=== PATIENT | male | born 1985 | race African-American/Black ===

== ENCOUNTER 2016-10-02 12:01 | Inpatient (IN) | payer OTHER ==
[2016-10-02 12:21] VITALS: BMI 26.9
--- NOTE | 2016-10-02 14:49 | HP ---
CIWA Score - CIWA Score Nausea/Vomitin-Mild Nausea/No Vomiting Muscle Tremors: 4-Moderate,w/Arms Extend Anxiety: 4-Mod. Anxious/Guarded Agitation: 4-Moderately Restless Paroxysmal Sweats: 3 Orientation: 0-Oriented Tacttile Disturbances: 0-None Auditory Disturbances: 0-None Visual Disturbances: 0-None Headache: 2-Mild CIWA-Ar Total Score: 18 Admission ROS BHS - HPI Chief Complaint: Withdrawal sx. Allergies/Adverse Reactions: Allergies Allergy/AdvReac Type Severity Reaction Status Date / Time No Known Drug Allergies Allergy Verified 10/02/16 13:48 History of Present Illness: 31 y/o man with a long hx. of alcoholism is admitted for detox. Pt. last detox was 10 yrs. ago. denies significant sobriety. Exam Limitations: No Limitations - Ebola screening Have you traveled outside of the country in the last 21 days: No Have you had contact with anyone from an Ebola affected area: No Have you been sick,other than usual withdrawal symptoms: No Do you have a fever: No - Review of Systems Constitutional: Diaphoresis EENT: reports: No Symptoms Reported Respiratory: reports: No Symptoms reported Cardiac: reports: No Symptoms Reported GI: reports: Nausea, Abdominal cramping : reports: No Symptoms Reported Musculoskeletal: reports: No Symptoms Reported Integumentary: reports: Sweating Neuro: reports: Tremors Endocrine: reports: No Symptoms Reported Hematology: reports: No Symptoms Reported Psychiatric: reports: No Sypmtoms Reported Other Systems: Reviewed and Negative Patient History - Patient Medical History Hx Anemia: No Hx Asthma: No Hx Chronic Obstructive Pulmonary Disease (COPD): No Hx Cancer: No Hx Cardiac Disorders: No Hx Congestive Heart Failure: No Hx Hypertension: No Hx Hypercholesterolemia: No Hx Pacemaker: No HX Cerebrovascular Accident: No Hx Seizures: No Hx Dementia: No Hx Diabetes: No Hx Gastrointestinal Disorders: No Hx Liver Disease: No Hx Genitourinary Disorders: No Hx Sexually Transmitted Disorders: No Hx Renal Disease (ESRD): No Hx Thyroid Disease: No Hx Human Immunodeficiency Virus (HIV): No Hx Hepatitis C: No Hx Depression: No Hx Suicide Attempt: No Hx Bipolar Disorder: No Hx Schizophrenia: No - Patient Surgical History Past Surgical History: No Hx Neurologic Surgery: No Hx Cataract Extraction: No Hx Cardiac Surgery: No Hx Lung Surgery: No Hx Breast Surgery: No Hx Breast Biopsy: No Hx Abdominal Surgery: No Hx Appendectomy: No Hx Cholecystectomy: No Hx Genitourinary Surgery: No Hx Section: No Hx Orthopedic Surgery: No Anesthesia Reaction: No - PPD History Previous Implant?: Yes Documented Results: Negative w/o proof Implanted On Prior [facility] Admission?: No PPD to be Administered?: Yes - Smoking Cessation Smoking history: Current every day smoker Have you smoked in the past 12 months: Yes Aproximately how many cigarettes per day: 10 Hx Chewing Tobacco Use: No Initiated information on smoking cessation: Yes 'Breaking Loose' booklet given: 10/02/16 - Substance & Tx. History Hx Alcohol Use: Yes Hx Substance Use: Yes Substance Use Type: Alcohol, Marijuana Hx Substance Use Treatment: Yes (detox 10 yrs. ago) - Substances Abused Alcohol Route: Oral Frequency: Daily Amount used: liquor- 10fifths (vodka) Age of first use: 14 Date of Last Use: 10/01/16 Marijuana/Hashish Route: Smoking Frequency: 1-3 times last 30 days Amount used: $60 Age of first use: 14 Date of Last Use: 10/02/16 Family Disease History - Family Disease History Family Disease History: Heart Disease: Father (htn,alcohol,cocaine), Mother (htn ,alcohol,cocaine), Other: Father, Mother Admission Physical Exam [facility] - Vital Signs Vital Signs: Vital Signs - 24 hr 10/02/16 12:17 Temperature 96.6 F L Pulse Rate 78 Respiratory 18 Rate Blood Pressure 143/83 - Physical General Appearance: Yes: Tremorous, Sweating, Anxious HEENTM: Yes: Within Normal Limits Respiratory: Yes: Chest Non-Tender, Lungs Clear, Normal Breath Sounds Neck: Yes: Supple Breast: Yes: Breast Exam Deferred Cardiology: Yes: Regular Rhythm, Regular Rate, S1, S2 Abdominal: Yes: Normal Bowel Sounds, Non Tender, Soft Genitourinary: Yes: Within Normal Limits Back: Yes: Within Normal Limits Musculoskeletal: Yes: Within Normal Limits Extremities: Yes: Tremors Neurological: Yes: Fully Oriented, Alert Integumentary: Yes: Diaphoresis Lymphatic: Yes: Within Normal Limits - Diagnostic (1) Alcohol dependence with uncomplicated withdrawal Current Visit: Yes Status: Acute (2) Cannabis dependence, uncomplicated Current Visit: Yes Status: Acute Cleared for Admission [facility] - Detox or Rehab [facility] Level of Care: Medically Managed Detox Regimen/Protocol: Librium BHS Breath Alcohol Content Breath Alcohol Content: 0 Urine Drug Screen - Results Drug Screen Negative: Yes
[2016-10-02] MEDS ORDERED: P-EPHED 60MG/TRIPROLIDI 2.5MG TABLET PO PRN (14:57)
[2016-10-02] MEDS ORDERED: MAG HYDROX/AL HYDROX/SIMETH 30 ML UNIT-DOSE CUP PO PRN (14:57)
[2016-10-02] MEDS ORDERED: ACETAMINOPHEN 325 MG TABLET (FP) PO PRN (14:57)
[2016-10-02] MEDS ORDERED: MENTHOL/PHENOL 1 EACH UD MM PRN (14:57)
[2016-10-02] MEDS ORDERED: IBUPROFEN 400 MG TABLET (FP) PO PRN (14:57)
[2016-10-02] MEDS ORDERED: guaiFENesin/D-METHORPHAN HB 10 ML UNIT-DOSE CUPS PO PRN (14:57)
[2016-10-02] MEDS ORDERED: MAGNESIUM HYDROX 2400MG/30ML ORAL SUSPENSION 30 ML CUP PO PRN (14:57)
[2016-10-02] MEDS ORDERED: hydrOXYzine PAMOATE 50 MG CAPSULE (FP) PO PRN (14:57)
[2016-10-02] MEDS ORDERED: MAGNESIUM CITRATE 300 ML BOTTLE PO PRN (14:57)
[2016-10-02] MEDS ORDERED: LOPERAMIDE HCL 2 MG CAPSULE PO PRN (14:57)
[2016-10-02] MEDS ORDERED: chlordiazePOXIDE HCL 25 MG CAPSULE PO PRN (14:57)
[2016-10-02] MEDS ORDERED: chlordiazePOXIDE HCL 25 MG CAPSULE PO ONE (14:57)
[2016-10-02] MEDS ORDERED: diazePAM 5 MG TABLET PO ONE (16:26)
[2016-10-02] MEDS: NICOTINE 14 MG/24 HOURS TOPICAL PATCH TD SCH (16:51)
[2016-10-02] MEDS ORDERED: chlordiazePOXIDE HCL 25 MG CAPSULE PO SCH (17:00)
[2016-10-02 20:55] LABS: URINE APPEARANCE CLEAR; URINE BILIRUBIN NEGATIVE (NEGATIVE); URINE BLOOD NEGATIVE (NEGATIVE); URINE COLOR STRAW; URINE GLUCOSE (UA) NEGATIVE (NEGATIVE); URINE KETONE NEGATIVE (NEGATIVE); URINE LEUK ESTERASE NEGATIVE (NEGATIVE); URINE NITRITE NEGATIVE (NEGATIVE); URINE PROTEIN NEGATIVE (NEGATIVE); URINE UROBILINOGEN NEGATIVE E.U./dl (0.2-1.0)
[2016-10-02] MEDS: THIAMINE HCL 100 MG TABLET (FP) PO SCH (22:30)
[2016-10-02] MEDS: diazePAM 5 MG TABLET PO SCH (22:30)
[2016-10-03] MEDS: diazePAM 5 MG TABLET PO SCH ×3 (07:20→22:38)
[2016-10-03 10:28] LABS: MCH 32.8 pg (25.7-33.7); MCHC 33.4 g/dl (32.0-35.9); MEAN CELL VOLUME 98.1 fl (80-96); PLATELET COUNT 198 K/MM3 (134-434); RDW 12.6 % (11.9-15.9); WHITE BLOOD COUNT 2.7 K/mm3 (4.0-10.0)
[2016-10-03] MEDS: diazePAM 5 MG TABLET PO PRN ×2 (10:34→17:20)
[2016-10-03] MEDS: PRENATAL VITAMINS W/ FOLIC ACID TABLET (FP) PO SCH (10:34)
[2016-10-03] MEDS: NICOTINE 14 MG/24 HOURS TOPICAL PATCH TD SCH (10:36)
[2016-10-03] MEDS: NICOTINE POLACRILEX 2 MG GUM BC PRN ×2 (10:37→20:49)
[2016-10-03 10:39] LABS: ALBUMIN 3.8 g/dl (3.4-5.0); ALK PHOS 71 U/L (45-117); ANION GAP 10 (8-16); BILIRUBIN,TOTAL 0.7 mg/dL (0.2-1.0); CALCIUM 9.2 mg/dL (8.5-10.1); CO2 26 mmol/L (21-32); CREATININE 0.9 mg/dL (0.7-1.3); GLUCOSE,RANDOM 75 mg/dL (74-106); SGOT/AST 18 U/L (15-37); SGPT/ALT 23 U/L (12-78); TOT PROT 6.5 g/dl (6.4-8.2)
--- NOTE | 2016-10-03 10:50 | PN ---
[facility] CIWA - CIWA Score Nausea/Vomitin Muscle Tremors: 3 Anxiety: 3 Agitation: 2 Paroxysmal Sweats: 1-Minimal Palms Moist Orientation: 0-Oriented Tacttile Disturbances: 1-Very Mild Itch/Numbness Auditory Disturbances: 1-Very Mild Visual Disturbances: 1-Very Mild Sensitivity Headache: 2-Mild CIWA-Ar Total Score: 17 BHS Progress Note (SOAP) Subjective: alert,irritable,anxious,interrupted sleep,tremor Objective: 10/03/16 10:47 Vital Signs Temperature 97.6 F 10/02/16 18:12 Pulse Rate 77 10/02/16 18:12 Respiratory Rate 18 10/03/16 03:30 Blood Pressure 121/76 10/02/16 18:12 O2 Sat by Pulse Oximetry (%) 10/03/16 10:48 ekg nsr.normal ecg Laboratory Last Values WBC 2.7 K/mm3 (4.0-10.0) L 10/03/16 07:00 RBC 4.38 M/mm3 (4.00-5.60) 10/03/16 07:00 Hgb 14.4 GM/dL (11.7-16.9) 10/03/16 07:00 Hct 43.0 % (35.4-49) 10/03/16 07:00 MCV 98.1 fl (80-96) H 10/03/16 07:00 MCHC 33.4 g/dl (32.0-35.9) 10/03/16 07:00 RDW 12.6 % (11.9-15.9) 10/03/16 07:00 Plt Count 198 K/MM3 (134-434) 10/03/16 07:00 MPV 9.0 fl (7.5-11.1) 10/03/16 07:00 Sodium 140 mmol/L (136-145) 10/03/16 07:00 Potassium 4.2 mmol/L (3.5-5.1) 10/03/16 07:00 Chloride 104 mmol/L (98-107) 10/03/16 07:00 Carbon Dioxide 26 mmol/L (21-32) 10/03/16 07:00 Anion Gap 10 (8-16) 10/03/16 07:00 BUN 11 mg/dL (7-18) 10/03/16 07:00 Creatinine 0.9 mg/dL (0.7-1.3) 10/03/16 07:00 Creat Clearance w eGFR > 60 (>60) 10/03/16 07:00 Random Glucose 75 mg/dL (74-106) 10/03/16 07:00 Calcium 9.2 mg/dL (8.5-10.1) 10/03/16 07:00 Total Bilirubin 0.7 mg/dL (0.2-1.0) 10/03/16 07:00 AST 18 U/L (15-37) 10/03/16 07:00 ALT 23 U/L (12-78) 10/03/16 07:00 Alkaline Phosphatase 71 U/L (45-117) 10/03/16 07:00 Total Protein 6.5 g/dl (6.4-8.2) 10/03/16 07:00 Albumin 3.8 g/dl (3.4-5.0) 10/03/16 07:00 Urine Color Straw 10/02/16 20:30 Urine Appearance Clear 10/02/16 20:30 Urine pH 8.0 (5.0-8.0) 10/02/16 20:30 Ur Specific [place] 1.010 (1.001-1.035) 10/02/16 20:30 Urine Protein Negative (NEGATIVE) 10/02/16 20:30 Urine Glucose (UA) Negative (NEGATIVE) 10/02/16 20:30 Urine Ketones Negative (NEGATIVE) 10/02/16 20:30 Urine Blood Negative (NEGATIVE) 10/02/16 20:30 Urine Nitrite Negative (NEGATIVE) 10/02/16 20:30 Urine Bilirubin Negative (NEGATIVE) 10/02/16 20:30 Urine Urobilinogen Negative E.U./dl (0.2-1.0) 10/02/16 20:30 Ur Leukocyte Esterase Negative (NEGATIVE) 10/02/16 20:30 labs pending 10/03/16 10:49 10/03/16 10:49 Assessment: 10/03/16 10:49 withdrawal symptom Plan: continue detox,leukopenia wbc 2,700,repeat cbc in am
--- NOTE | 2016-10-03 15:00 | EKG ---
Test Reason : Blood Pressure : / mmHG Vent. Rate : 070 BPM Atrial Rate : 070 BPM P-R Int : 154 ms QRS Dur : 094 ms QT Int : 412 ms P-R-T Axes : 061 066 063 degrees QTc Int : 444 ms NORMAL SINUS RHYTHM NORMAL ECG WHEN COMPARED WITH ECG OF 02-OCT-2016 14:51, NO SIGNIFICANT CHANGE WAS FOUND Confirmed by ALEXA SOLIS MD ([id number]) on 10/03/2016 3:00:18 PM Referred By: Confirmed By:ALEXA SOLIS MD
--- NOTE | 2016-10-03 15:01 | EKG ---
Test Reason : Blood Pressure : / mmHG Vent. Rate : 076 BPM Atrial Rate : 227 BPM P-R Int : 000 ms QRS Dur : 100 ms QT Int : 370 ms P-R-T Axes : 066 063 052 degrees QTc Int : 416 ms ATRIAL FLUTTER WITH 3:1 A-V CONDUCTION RSR' OR QR PATTERN IN V1 SUGGESTS RIGHT VENTRICULAR CONDUCTION DELAY VOLTAGE CRITERIA FOR LEFT VENTRICULAR HYPERTROPHY ABNORMAL ECG NO PREVIOUS ECGS AVAILABLE Confirmed by WILL LIN, ALEXA ([id number]) on 10/03/2016 3:01:06 PM Referred By: Confirmed By:ALEXA SOLIS MD
[2016-10-03] MEDS ORDERED: chlordiazePOXIDE HCL 25 MG CAPSULE PO SCH (17:00)
[2016-10-03] MEDS: THIAMINE HCL 100 MG TABLET (FP) PO SCH (22:38)
[2016-10-03] MEDS: diphenhydrAMINE HCL 50 MG CAPSULE PO PRN (22:38)
--- NOTE | 2016-10-04 09:03 | PN ---
[facility] CIWA - CIWA Score Nausea/Vomitin Muscle Tremors: 3 Anxiety: 3 Agitation: 2 Paroxysmal Sweats: 1-Minimal Palms Moist Orientation: 0-Oriented Tacttile Disturbances: 1-Very Mild Itch/Numbness Auditory Disturbances: 1-Very Mild Visual Disturbances: 1-Very Mild Sensitivity Headache: 2-Mild CIWA-Ar Total Score: 17 BHS Progress Note (SOAP) Subjective: ALERT,IRRITABLE,ANXIOUS,TREMOR,INTERRUPTED SLEEP Objective: 10/04/16 09:01 Vital Signs Temperature 97 F L 10/03/16 22:04 Pulse Rate 89 10/03/16 22:04 Respiratory Rate 18 10/04/16 06:30 Blood Pressure 124/98 10/03/16 22:04 O2 Sat by Pulse Oximetry (%) 10/04/16 09:01 Laboratory Last Values WBC 2.7 K/mm3 (4.0-10.0) L 10/03/16 07:00 RBC 4.38 M/mm3 (4.00-5.60) 10/03/16 07:00 Hgb 14.4 GM/dL (11.7-16.9) 10/03/16 07:00 Hct 43.0 % (35.4-49) 10/03/16 07:00 MCV 98.1 fl (80-96) H 10/03/16 07:00 MCHC 33.4 g/dl (32.0-35.9) 10/03/16 07:00 RDW 12.6 % (11.9-15.9) 10/03/16 07:00 Plt Count 198 K/MM3 (134-434) 10/03/16 07:00 MPV 9.0 fl (7.5-11.1) 10/03/16 07:00 Sodium 140 mmol/L (136-145) 10/03/16 07:00 Potassium 4.2 mmol/L (3.5-5.1) 10/03/16 07:00 Chloride 104 mmol/L (98-107) 10/03/16 07:00 Carbon Dioxide 26 mmol/L (21-32) 10/03/16 07:00 Anion Gap 10 (8-16) 10/03/16 07:00 BUN 11 mg/dL (7-18) 10/03/16 07:00 Creatinine 0.9 mg/dL (0.7-1.3) 10/03/16 07:00 Creat Clearance w eGFR > 60 (>60) 10/03/16 07:00 Random Glucose 75 mg/dL (74-106) 10/03/16 07:00 Calcium 9.2 mg/dL (8.5-10.1) 10/03/16 07:00 Total Bilirubin 0.7 mg/dL (0.2-1.0) 10/03/16 07:00 AST 18 U/L (15-37) 10/03/16 07:00 ALT 23 U/L (12-78) 10/03/16 07:00 Alkaline Phosphatase 71 U/L (45-117) 10/03/16 07:00 Total Protein 6.5 g/dl (6.4-8.2) 10/03/16 07:00 Albumin 3.8 g/dl (3.4-5.0) 10/03/16 07:00 Urine Color Straw 10/02/16 20:30 Urine Appearance Clear 10/02/16 20:30 Urine pH 8.0 (5.0-8.0) 10/02/16 20:30 Ur Specific [place] 1.010 (1.001-1.035) 10/02/16 20:30 Urine Protein Negative (NEGATIVE) 10/02/16 20:30 Urine Glucose (UA) Negative (NEGATIVE) 10/02/16 20:30 Urine Ketones Negative (NEGATIVE) 10/02/16 20:30 Urine Blood Negative (NEGATIVE) 10/02/16 20:30 Urine Nitrite Negative (NEGATIVE) 10/02/16 20:30 Urine Bilirubin Negative (NEGATIVE) 10/02/16 20:30 Urine Urobilinogen Negative E.U./dl (0.2-1.0) 10/02/16 20:30 Ur Leukocyte Esterase Negative (NEGATIVE) 10/02/16 20:30 RPR Titer Nonreactive (NONREACTIVE) 10/03/16 07:00 Hepatitis C Antibody 0.1 s/co ratio (0.0-0.9) 10/02/16 07:00 Assessment: 10/04/16 09:01 WITHDRAWAL SYMPTOM Plan: HISTORY OF HTN ON HYDROCHLOROTHIZIDE 25 MGS PO DAILY,BP MONITORING
[2016-10-04] MEDS: HYDROCHLOROTHIAZIDE 25 MG TABLET (FP) PO SCH (10:33)
[2016-10-04] MEDS: diazePAM 5 MG TABLET PO SCH ×2 (10:33→22:27)
[2016-10-04] MEDS: PRENATAL VITAMINS W/ FOLIC ACID TABLET (FP) PO SCH (10:33)
[2016-10-04] MEDS: NICOTINE 14 MG/24 HOURS TOPICAL PATCH TD SCH (10:34)
[2016-10-04] MEDS: NICOTINE POLACRILEX 2 MG GUM BC PRN ×2 (10:41→17:26)
[2016-10-04] MEDS ORDERED: chlordiazePOXIDE 5 MG CAPSULE PO SCH (17:00)
[2016-10-04] MEDS: diphenhydrAMINE HCL 50 MG CAPSULE PO PRN (22:27)
[2016-10-04] MEDS: THIAMINE HCL 100 MG TABLET (FP) PO SCH (22:27)
[2016-10-05] MEDS: NICOTINE POLACRILEX 2 MG GUM BC PRN ×2 (06:22→21:29)
--- NOTE | 2016-10-05 09:04 | PN ---
S Progress Note (SOAP) Subjective: ALERT,IRRITABLE,ANXIOUS,INTERRUPTED SLEEP,TREMOR Objective: 10/05/16 09:03 Vital Signs Temperature 97.1 F L 10/05/16 06:45 Pulse Rate 91 H 10/05/16 06:45 Respiratory Rate 16 10/05/16 06:45 Blood Pressure 131/90 10/05/16 06:45 O2 Sat by Pulse Oximetry (%) 10/05/16 09:03 Laboratory Last Values WBC 2.7 K/mm3 (4.0-10.0) L 10/03/16 07:00 RBC 4.38 M/mm3 (4.00-5.60) 10/03/16 07:00 Hgb 14.4 GM/dL (11.7-16.9) 10/03/16 07:00 Hct 43.0 % (35.4-49) 10/03/16 07:00 MCV 98.1 fl (80-96) H 10/03/16 07:00 MCHC 33.4 g/dl (32.0-35.9) 10/03/16 07:00 RDW 12.6 % (11.9-15.9) 10/03/16 07:00 Plt Count 198 K/MM3 (134-434) 10/03/16 07:00 MPV 9.0 fl (7.5-11.1) 10/03/16 07:00 Sodium 140 mmol/L (136-145) 10/03/16 07:00 Potassium 4.2 mmol/L (3.5-5.1) 10/03/16 07:00 Chloride 104 mmol/L (98-107) 10/03/16 07:00 Carbon Dioxide 26 mmol/L (21-32) 10/03/16 07:00 Anion Gap 10 (8-16) 10/03/16 07:00 BUN 11 mg/dL (7-18) 10/03/16 07:00 Creatinine 0.9 mg/dL (0.7-1.3) 10/03/16 07:00 Creat Clearance w eGFR > 60 (>60) 10/03/16 07:00 Random Glucose 75 mg/dL (74-106) 10/03/16 07:00 Calcium 9.2 mg/dL (8.5-10.1) 10/03/16 07:00 Total Bilirubin 0.7 mg/dL (0.2-1.0) 10/03/16 07:00 AST 18 U/L (15-37) 10/03/16 07:00 ALT 23 U/L (12-78) 10/03/16 07:00 Alkaline Phosphatase 71 U/L (45-117) 10/03/16 07:00 Total Protein 6.5 g/dl (6.4-8.2) 10/03/16 07:00 Albumin 3.8 g/dl (3.4-5.0) 10/03/16 07:00 Urine Color Straw 10/02/16 20:30 Urine Appearance Clear 10/02/16 20:30 Urine pH 8.0 (5.0-8.0) 10/02/16 20:30 Ur Specific [place] 1.010 (1.001-1.035) 10/02/16 20:30 Urine Protein Negative (NEGATIVE) 10/02/16 20:30 Urine Glucose (UA) Negative (NEGATIVE) 10/02/16 20:30 Urine Ketones Negative (NEGATIVE) 10/02/16 20:30 Urine Blood Negative (NEGATIVE) 10/02/16 20:30 Urine Nitrite Negative (NEGATIVE) 10/02/16 20:30 Urine Bilirubin Negative (NEGATIVE) 10/02/16 20:30 Urine Urobilinogen Negative E.U./dl (0.2-1.0) 10/02/16 20:30 Ur Leukocyte Esterase Negative (NEGATIVE) 10/02/16 20:30 RPR Titer Nonreactive (NONREACTIVE) 10/03/16 07:00 Hepatitis C Antibody 0.1 s/co ratio (0.0-0.9) 10/02/16 07:00 Assessment: 10/05/16 09:03 WITHDRAWAL SYMPTOM 10/05/16 09:04 Plan: CONTINUE DETOX,DISCHARGE IN AM FOLLOW UP WITH PMD FOR LEUKOPENIA
[2016-10-05] MEDS: PRENATAL VITAMINS W/ FOLIC ACID TABLET (FP) PO SCH (10:26)
[2016-10-05] MEDS: HYDROCHLOROTHIAZIDE 25 MG TABLET (FP) PO SCH (10:26)
[2016-10-05] MEDS: NICOTINE 14 MG/24 HOURS TOPICAL PATCH TD SCH (10:27)
[2016-10-05] MEDS: diazePAM 5 MG TABLET PO SCH ×2 (10:27→22:35)
[2016-10-05] MEDS ORDERED: chlordiazePOXIDE HCL 10 MG CAPSULE PO SCH (17:00)
[2016-10-05] MEDS: diphenhydrAMINE HCL 50 MG CAPSULE PO PRN (22:35)
[2016-10-05] MEDS: THIAMINE HCL 100 MG TABLET (FP) PO SCH (22:35)
--- NOTE | 2016-10-06 08:21 | PN ---
S Progress Note (SOAP) Subjective: alert,no complaint Objective: 10/06/16 08:19 Vital Signs Temperature 98.3 F 10/06/16 06:41 Pulse Rate 91 H 10/06/16 06:41 Respiratory Rate 16 10/06/16 06:41 Blood Pressure 112/74 10/06/16 06:41 O2 Sat by Pulse Oximetry (%) Assessment: 10/06/16 08:20 detox completed,no withdrawal symptom Plan: discharge today,follow up with after care program as arrangement
--- NOTE | 2016-10-06 08:25 | DS ---
[facility] Detox Discharge Summary Admission Date: 10/02/16 Discharge Date: 10/06/16 - History Present History: Alcohol Dependence, Cannabis Dependence Additional Comments: follow up with after care program as arrangement - Physical Exam Results Vital Signs: Vital Signs Temperature 98.3 F 10/06/16 06:41 Pulse Rate 91 H 10/06/16 06:41 Respiratory Rate 16 10/06/16 06:41 Blood Pressure 112/74 10/06/16 06:41 O2 Sat by Pulse Oximetry (%) Pertinent Admission Physical Exam Findings: withdrawal symptom - Treatment Hospital Course: Detox Protocol Followed, Detoxed Safely, Responded well, Discharged Condition Good Patient has Accepted a Rehab Referral to: declined - Medication Discharge Medications: Ambulatory Orders NK [No Known Home Medication] 10/02/16 - Diagnosis (1) Alcohol dependence with uncomplicated withdrawal Current Visit: Yes Status: Acute (2) Cannabis dependence, uncomplicated Current Visit: Yes Status: Acute - AMA Did Patient Leave Against Medical Advice: No
[2016-10-06] MEDS: HYDROCHLOROTHIAZIDE 25 MG TABLET (FP) PO SCH (09:10)
[2016-10-06] MEDS: PRENATAL VITAMINS W/ FOLIC ACID TABLET (FP) PO SCH (09:10)
[2016-10-06] MEDS: NICOTINE 14 MG/24 HOURS TOPICAL PATCH TD SCH (09:12)
[2016-10-06 09:50] VITALS: BP 142/93; PULSE 113; TEMP 98
[2016-10-06] MEDS ORDERED: diazePAM 5 MG TABLET PO SCH (10:00)
== END 2016-10-06 09:15 | disposition home or self-care (01) | DRG 775 ==
LOC: YASAS 12:01 → Y3N 14:28
PROVIDERS: ADMIT Internal Medicine; ATTEND Internal Medicine
PROC: HZ2ZZZZ Detoxification Services for Substance Abuse Treatment (ICD-10-PCS; principal; 2016-10-06)
DX: F10.230 Alcohol dependence with withdrawal, uncomplicated (principal); F12.20 Cannabis dependence, uncomplicated; Z59.0 Homelessness
CPT/HCPCS: 36415; 80053; 81003; 85027; 86593; 93005; 93010